=== PATIENT | female | born 1990 | race Caucasian/White ===

== ENCOUNTER 2017-07-20 20:15 | Emergency (ER) | payer BC, OTHER ==
[2017-07-20 20:27] VITALS: PULSE 72; RESP 16
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
[2017-07-20] MEDS ORDERED: AMOXICILLIN/CLAVULANATE POT 875/125 MG TAB PO ONE (22:47)
[2017-07-20 23:11] VITALS: BP 125/71; TEMP 97.7; O2SAT 97
== END 2017-07-20 23:00 | disposition home or self-care (01) ==
PROC: 0HQQXZZ Repair Finger Nail, External Approach (ICD-10-PCS; principal; 2017-07-20)
DX: S62.635B Displaced fracture of distal phalanx of left ring finger, initial encounter for open fracture (principal); J45.909 Unspecified asthma, uncomplicated; V16.4XXA Pedal cycle driver injured in collision with other nonmotor vehicle in traffic accident, initial encounter; Y92.410 Unspecified street and highway as the place of occurrence of the external cause; Y99.8 Other external cause status; Y93.55 Activity, bike riding
CPT/HCPCS: L3925